=== PATIENT | male | born 1970 | race African-American/Black ===

== ENCOUNTER 2019-02-07 17:07 | Emergency (ER) | payer SELFPAY ==
[~2019-02-07] VITALS: Ht 177.8 cm; Wt 88.5 kg
[2019-02-07] MEDS ORDERED: KETOROLAC TROMETHAMINE INJ 30 MG/ML VIAL IV ONE (17:30)
[2019-02-07] MEDS ORDERED: IV NS 0.9% 1,000 ML BAG IV ONE (17:30)
--- NOTE | 2019-02-07 17:31 | NUR ---
DR SNIDER AT BEDSIDE FOR EVAL.
--- NOTE | 2019-02-07 17:34 | NUR ---
WENT TO RAD DEPT WITH [employer]BAT SYSTEMS OFFICER FOR CT SCAN.
--- NOTE | 2019-02-07 17:54 | NUR ---
HIDES INSPECTOR AT BEDSIDE FOR BLOOD DRAW.
[2019-02-07 17:58] LABS: BASOPHILS % (AUTO) 0.9 % (0.0-2.0); EOSINOPHILS % (AUTO) 0.9 % (0.0-6.0); HEMATOCRIT 47 % (39-51); HEMOGLOBIN 16.6 g/dL (13.5-17.5); LYMPHOCYTES # (AUTO) 2.4 /CMM (0.8-4.8); LYMPHOCYTES % (AUTO) 50.8 % (20.0-44.0); MEAN CORPUSCULAR HGB CONC 36 g/dl (31.0-36.0); MEAN CORPUSCULAR VOLUME 93 fL (80-96); MONOCYTES # (AUTO) 0.3 /CMM (0.1-1.30); MONOCYTES % (AUTO) 6.5 % (2.0-12.0); NEUTROPHILS # (AUTO) 1.9 /CMM (1.8-8.9); NEUTROPHILS % (AUTO) 40.9 % (43.0-81.0); PLATELET COUNT (AUTO) 237 /CMM (150-450); RED BLOOD CELL COUNT(AUTO) 5.03 MIL/uL (4.5-6.0); WHITE BLOOD COUNT (AUTO) 4.6 K/uL (4.3-11.0)
[2019-02-07 18:02] LABS: APPEARANCE,URINE Clear (CLEAR); BILIRUBIN,URINE Negative (NEGATIVE); BLOOD, URINE Negative Ery/uL (NEGATIVE); COLOR,URINE Yellow (YELLOW); KETONES,URINE Negative (NEGATIVE); LEUKOCYTE ESTERASE ,URINE Negative (NEGATIVE); NITRITE, URINE Negative (NEGATIVE); PH,URINE 7.5 (5.0-8.0); PROTEIN,URINE Negative (NEGATIVE); UGLUCOSE Negative (NEGATIVE); UROBILINOGEN,URINE 0.2 EU/dL (0.2)
[2019-02-07 18:05] LABS: CREATININE 1.2 mg/dL (0.6-1.3)
[2019-02-07 18:11] LABS: ALBUMIN 3.9 g/dL (3.4-5.0); BILIRUBIN,DIRECT 0.2 mg/dL (0.0-0.2); BILIRUBIN,TOTAL 1.4 mg/dL (0.2-1.0); TOTAL PROTEIN, SERUM 7.3 g/dL (6.4-8.2)
--- NOTE | 2019-02-07 19:28 | NUR ---
Patient discharged to home in stable condition. Written and verbal after care instructions given. Patient verbalizes understanding of instruction.IV removed. Catheter intact and site benign. Pressure and 4x4 applied to site. No bleeding noted.
[2019-02-07 19:29] VITALS: BP 142/99
== END 2019-02-07 19:29 | disposition home or self-care (01) ==
LOC: ER 17:07
DX: N50.811 Right testicular pain (principal); R10.30 Lower abdominal pain, unspecified; I10 Essential (primary) hypertension
CPT/HCPCS: 36415; 76870-TC; 80048-TC; 80076-TC; 81000-TC; 83690-TC; 85025-TC; 87491; 87591

== ENCOUNTER 2022-04-30 09:58 | Emergency (ER) | payer OTHER ==
[~2022-04-30] VITALS: Ht 177.8 cm; Wt 86.2 kg
--- NOTE | 2022-04-30 10:15 | NUR ---
BIBS W/ C/O TESTICULAR PAIN X3DAYS, "NOT SURE ABOUT MY EX PARTNER" PER PT. TO ER BED 7.
--- NOTE | 2022-04-30 10:52 | NUR ---
URINE SAMPLE COLLECTED AND SENT TO LAB
[2022-04-30 11:09] LABS: BILIRUBIN,URINE NEGATIVE (NEGATIVE); COLOR,URINE YELLOW (YELLOW); LEUKOCYTE ESTERASE ,URINE NEGATIVE (NEGATIVE); NITRITE, URINE NEGATIVE (NEGATIVE); PROTEIN,URINE NEGATIVE (NEGATIVE); UGLUCOSE NEGATIVE (NEGATIVE); UROBILINOGEN,URINE 0.2 EU/dL (0.2)
[2022-04-30] MEDS ORDERED: DOXY-226 PO (11:27)
[2022-04-30] MEDS ORDERED: CEFTRIAXONE 500 MG VIAL IM ONE (11:30)
[2022-04-30] MEDS ORDERED: CEFTRIAXONE 500 MG VIAL ONE (11:33)
[2022-04-30 11:45] VITALS: BP 132/73
--- NOTE | 2022-04-30 11:45 | NUR ---
ROCEPHIN GIVEN IM RIGHT DELTOID.
--- NOTE | 2022-04-30 11:45 | NUR ---
Patient discharged to home in stable condition. Written and verbal after care instructions given. Patient verbalizes understanding of instruction.
== END 2022-04-30 11:45 | disposition home or self-care (01) ==
LOC: ER 10:17
DX: N48.89 Other specified disorders of penis (principal); I10 Essential (primary) hypertension; Z79.899 Other long term (current) drug therapy
CPT/HCPCS: 99283; 96372; 81003; 87491; 87591; J0696